=== PATIENT | male | born 1960 | race Caucasian/White ===

== ENCOUNTER → 2021-03-29 | Outpatient (CLI) | payer MEDICARE ==
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
== END ==
LOC: RAD FS 10:25
PROVIDERS: ATTEND Nurse Practitioner Family
DX: M47.812 Spondylosis without myelopathy or radiculopathy, cervical region (principal); J34.89 Other specified disorders of nose and nasal sinuses
CPT/HCPCS: 70486; 72125